=== PATIENT | female | born 1970 | race African-American/Black ===

== ENCOUNTER 2020-05-19 21:55 | Emergency (ER) | payer OTHER ==
[2020-05-19 22:06] VITALS: BP 165/83; PULSE 91; TEMP 98.7; BMI 29.5
== END 2020-05-20 01:26 | disposition home or self-care (01) ==
LOC: JER 21:55
DX: M79.651 Pain in right thigh (principal)
CPT/HCPCS: 76882-TC-RT-FY; 93971-TC; 99282-25